=== PATIENT | female | born 1990 | race Caucasian/White ===

== ENCOUNTER 2018-09-15 19:11 | Emergency (ER) | payer BC, OTHER ==
[~2018-09-15] VITALS: Ht 157.5 cm; Wt 59.0 kg
[~2018-09-15 19:11] MED LIST: DIPH50 PO; PROACE100 PO; PROM25 PO; RXPROACE PO; [UNRECOGNIZED DRUG - REMARK]
[2018-09-15] MEDS ORDERED: MIRENA1 EACH VAG (19:38)
== END 2018-09-15 23:48 | disposition home or self-care (01) ==
LOC: ER 19:11
DX: J95.830 Postprocedural hemorrhage of a respiratory system organ or structure following a respiratory system procedure (principal); R04.0 Epistaxis
CPT/HCPCS: 30903; 96374-59; 96375-59; 99283-25; J2765

== ENCOUNTER → 2024-07-22 | Outpatient (CLI) | payer BC ==
[~2024-07-22] MED LIST changes: +MIRENA1 EACH VAG
[2024-07-22 14:49] LABS: BASOPHILS PERCENT AUTO 1 % (0-2); EOSINOPHILS ABSOLUTE AUTO 0.06 K/mm3 (0.00-0.68); EOSINOPHILS PERCENT AUTO 1 % (0-6); Hematocrit 39.8 % (33.0-51.0); Hemoglobin 13.4 g/dL (11.5-16.0); IMMATURE GRAN ABSOLUTE AUTO 0.02 K/mm3 (0.00-0.10); IMMATURE GRAN PERCENT AUTO 0 % (0-1); LYMPHOCYTES ABSOLUTE AUTO 1.98 K/mm3 (0.84-5.20); LYMPHOCYTES PERCENT AUTO 25 % (21-46); MONOCYTES PERCENT AUTO 6 % (4-13); Mean Corpuscular HGB 28.9 pg (26.0-34.0); Mean Corpuscular HGB Conc 33.7 g/dL (31.5-36.5); Mean Corpuscular Volume 86 fL (80-100); Mean Platelet Volume 9.8 fL (9.1-12.4); NEUTROPHILS ABSOLUTE AUTO 5.33 K/mm3 (1.96-9.15); NEUTROPHILS PERCENT AUTO 67 % (41-73); Platelet Count 318 K/mm3 (150-400); RDW Coefficient Variation 12.8 % (11.7-14.2); RDW Standard Deviation 39.7 fL (35.1-46.3); Red Blood Cell Count 4.63 M/mm3 (3.80-5.20); White Blood Cell Count 7.99 K/mm3 (4.00-11.30)
[2024-07-22 15:08] LABS: Albumin, Blood 4.3 g/dL (3.4-5.0); Albumin/Globulin Ratio 1.1 (0.8-1.8); Bilirubin, Total 0.4 mg/dL (0.1-1.0); Bun/Creatinine Ratio 11.9 (12.0-20.0); Calcium, Blood 9.4 mg/dL (8.5-10.1); Creatinine, Blood 0.67 mg/dL (0.40-1.00); Globulin, Blood 3.9 g/dL (2.2-4.0); Thyroid Stimulating Hormone 0.783 uIU/mL (0.360-4.800); Total Protein, Blood 8.2 g/dL (6.4-8.2)
== END ==
LOC: LAB 14:44 → LAB SHORT 14:44
DX: R42 Dizziness and giddiness (principal)
CPT/HCPCS: 80053; 84443; 84484; 85025